=== PATIENT | female | born 1985 | race Caucasian/White ===

== ENCOUNTER 2020-09-13 06:39 | Inpatient (IN) | payer BC, OTHER ==
[~2020-09-13] VITALS: Ht 165.1 cm; Wt 80.7 kg
[2020-09-13 08:40] LABS: HEMOGLOBIN 12.1 gm/dl (12.3-15.3); RED BLOOD COUNT 3.81 M/UL (4.00-5.10)
[2020-09-13] MEDS ORDERED: PRENATAL TABLE1 EAC1 PO (10:07)
[2020-09-13] MEDS ORDERED: LAMICTAL100 MG PO (10:07)
[2020-09-13] MEDS ORDERED: IBUPROFEN800 MG PO (13:00)
[2020-09-13] MEDS ORDERED: TYLENOL EXTRA500 MG PO (13:00)
[2020-09-13] MEDS ORDERED: DOCUSATE SODIU100 MG PO (13:00)
[2020-09-14 06:43] LABS: HEMOGLOBIN 10.1 gm/dl (12.3-15.3)
== END 2020-09-14 14:53 | disposition home or self-care (01) | DRG 807 ==
LOC: OB 06:39
PROVIDERS: ADMIT Obstetrics & Gynecology
PROC: 10E0XZZ Delivery of Products of Conception, External Approach (ICD-10-PCS; principal; 2020-09-13)
PROC: 10907ZC Drainage of Amniotic Fluid, Therapeutic from Products of Conception, Via Natural or Artificial Opening (ICD-10-PCS; 2020-09-13)
PROC: 3E033VJ Introduction of Other Hormone into Peripheral Vein, Percutaneous Approach (ICD-10-PCS; 2020-09-13)
PROC: 4A1HXCZ Monitoring of Products of Conception, Cardiac Rate, External Approach (ICD-10-PCS; 2020-09-13)
DX: O99.354 Diseases of the nervous system complicating childbirth (principal); Z37.0 Single live birth; Z3A.39 39 weeks gestation of pregnancy; Z20.822 Contact with and (suspected) exposure to COVID-19; G40.909 Epilepsy, unspecified, not intractable, without status epilepticus
CPT/HCPCS: 36415; 51702; 82800; 85014; 85018; 85025; 90471; 90715; J2590; J7120; U0002